=== PATIENT | female | born 1995 | race African-American/Black ===

== ENCOUNTER → 2016-11-04 | Outpatient (CLI) | payer MEDICAID ==
[2016-11-06 15:42] LABS: Gest. Age on Collection Date 19.6 WEEKS; Gestat. Age Based On ULTRASOUND; Maternal Age At EDD 22.7 YEARS
[2016-11-06 15:43] LABS: AFP Value 31.5 ng/mL; Insulin Dep Diabetes NOT PROVIDED; hCG Value 9056 mIU/mL
[2016-11-06 15:44] LABS: DIA MoM 0.49; DIA Value 94.03 pg/mL; hCG MoM 0.39; uE3 MoM 0.92; uE3 Value 1.68 ng/mL
[2016-11-06 15:45] LABS: DSR (Second Trimester) 1 IN 10000; OSBR Risk 1 IN 10000
[2016-11-06 15:51] LABS: Interpretation SCREEN NEGATIVE
== END ==
LOC: LAB 11:54
PROVIDERS: Nurse Practitioner Obstetrics & Gynecology
DX: Z34.80 Encounter for supervision of other normal pregnancy, unspecified trimester (principal)

== ENCOUNTER → 2017-03-10 | Outpatient (CLI) | payer MEDICAID ==
[~2017-03-10] MED LIST: PRENATAL MULTI1 EAC3 PO
[2017-03-13 10:41] LABS: Neisseria gonorrhoeae, NAA Negative (Negative)
== END ==
LOC: LAB 16:46
PROVIDERS: Nurse Practitioner Obstetrics & Gynecology
DX: Z34.80 Encounter for supervision of other normal pregnancy, unspecified trimester (principal)

== ENCOUNTER → 2017-07-18 | Outpatient (CLI) | payer MEDICAID ==
[~2017-07-18] MED LIST changes: +COLACE GENERIC100 MG PO; +IRON TABLETS325 MG PO; +MOTRIN 400MG.400 MG PO; +PRENATA1 CTB PO
--- NOTE | 2017-07-18 15:01 | RADIOLOGY REPORT PS360 ---
US TRANSVAGINAL PREG HISTORY: OB US FOR DATES ORDERING PHYSICIAN: Elier Panda MD PATIENT AGE: 22 years COMPARISON: None FINDINGS: An intrauterine gestational sac is present with a pole with a crown-rump length of 0.88cm correlating to gestational age of 7 weeks 0 days. heart tones are present with an FHR of 1:30 bpm's. Yolk sac is noted. The amnion and chorion have not yet fused. Adnexa: There is a complex right ovarian cyst at 2 cm. The left ovary has an unremarkable appearance. IMPRESSION: Live intrauterine gestation at 7 weeks 0 days as described above.
== END ==
LOC: RAD 14:03
DX: O26.841 Uterine size-date discrepancy, first trimester (principal)